=== PATIENT | female | born 1955 | race Caucasian/White ===

== ENCOUNTER → 2020-01-29 10:54 | Outpatient (BNVA) | payer MEDICARE, OTHER, SELFPAY | PROVIDERS: PCP Family Medicine; Referring Provider Family Medicine; Visit Provider Internal Medicine Endocrinology, Diabetes & Metabolism | DX: E03.8 Other specified hypothyroidism (principal); E06.3 Autoimmune thyroiditis; E04.1 Nontoxic single thyroid nodule; Z79.899 Other long term (current) drug therapy | CPT/HCPCS: 99212 ==

== ENCOUNTER 2021-05-28 13:51 | Outpatient (REF) | payer MEDICARE, OTHER, SELFPAY ==
[2021-05-28 16:32] LABS: Free T4 (Free Thyroxine) 1.43 ng/dL (0.71-1.85); Thyroid Stimulating Hormone 0.41 uIU/mL (0.32-4.0)
== END 2021-05-28 13:52 | disposition home or self-care (01) ==
LOC: HO.LAB 13:51
PROVIDERS: PCP Family Medicine; Visit Provider Nurse Practitioner Gerontology
DX: E03.8 Other specified hypothyroidism (principal); E06.3 Autoimmune thyroiditis; E04.9 Nontoxic goiter, unspecified; K21.9 Gastro-esophageal reflux disease without esophagitis; E78.5 Hyperlipidemia, unspecified; I10 Essential (primary) hypertension; J43.9 Emphysema, unspecified; F17.210 Nicotine dependence, cigarettes, uncomplicated; Z95.2 Presence of prosthetic heart valve; Z79.899 Other long term (current) drug therapy
CPT/HCPCS: 36415; 84439; 84443; 99212

== ENCOUNTER 2023-03-01 10:47 | Emergency (ER) | payer MEDICARE, SELFPAY ==
--- NOTE | ~2023-03-01 | CT_ITS ---
EXAMINATION: CT HEAD WITHOUT CONTRAST CLINICAL INFORMATION: Dizziness COMPARISON: None. TECHNIQUE: Contiguous axial imaging was performed from the skull base to vertex without intravenous administration of contrast. Coronal and sagittal reformatted images are performed at the CT scanner. [This CT examination was performed using dose optimization techniques as appropriate, variously including the following: *Automated exposure control *Adjustment of mA and/or kV according to patient size (this includes techniques or standardized protocols for targeted exams where dose is matched to indication/reason for exam; i.e. extremities or head) *Use of iterative reconstruction technique] DLP: 510 mGy-cm. FINDINGS: There is no evidence of acute intracranial hemorrhage or territorial infarction. No abnormal mass-effect or midline shift is seen. Echevarria to white matter differentiation is well preserved. No extra-axial fluid collections are identified. The ventricles are normal in size. There is no abnormal attenuation within the brain parenchyma. There is no osseous abnormality. Small air-fluid level in the right maxillary sinus. Mastoid air cells and middle ear cavities are normally aerated. CT/CT head/brain wo IV con IMPRESSION: No acute intracranial pathology.
--- NOTE | ~2023-03-01 | XR_ITS ---
EXAMINATION: XR CHEST CLINICAL INFORMATION: Dizziness. Abnormal EKG. COMPARISON: Chest x-ray 02/06/2010 TECHNIQUE: 2 views of the chest were obtained. FINDINGS: Cardiac silhouette is normal in size. Patient is status post valvular replacement. Atrial appendage clip present. The lungs are well aerated. There is no lobar consolidation. No pleural effusion or pneumothorax. Mild degenerative changes of the spine. XR/XR chest 2V IMPRESSION: No acute pulmonary pathology.
--- NOTE | 2023-03-01 10:56 | ECG_ITS ---
Test Reason : abn ekg Blood Pressure : / mmHG Vent. Rate : 054 BPM Atrial Rate : 054 BPM P-R Int : 162 ms QRS Dur : 076 ms QT Int : 464 ms P-R-T Axes : 000 025 -01 degrees QTc Int : 440 ms Sinus bradycardia Nonspecific ST and T wave abnormality Borderline ECG When compared with ECG of 15-SEP-2003 07:34, T wave inversion now evident in Inferior leads T wave inversion now evident in Anterior leads Referred By: Generic ED Physician Electronically Signed By:LALO COOPER
--- NOTE | 2023-03-01 11:09 | ED.GENADULT ---
HPI - General Adult General Chief complaint: Dizziness Stated complaint: abnormal ekg Time Seen by Provider: 03/01/23 20:59 Source: patient Mode of arrival: EMS Limitations: no limitations History of Present Illness HPI narrative: 67 yo female with PMH of GERD, HLD, shanita's, HTN, COPD, AVR, here with c/o palpitations and dizziness that is worse at night without dyspnea and CP. Not made worse with exertion. No travel but has had URI symptoms. She gets dizzy when she stands sometimes. She is eating and drinking fine denies GIB symptoms. Sent by PCP for abnormal EKG though we do not have priors since 2003. MD complaint: dizziness Onset (ago): week(s) (1) Location: head Radiation: non-radiation Severity: mild Relieving factors: none Exacerbating factors: other (standing up) Associated symptoms: other (cough) Treatments prior to arrival: none Related Data Home Medications Medication Instructions Recorded Confirmed aspirin 81 mg tablet,delayed 81 mg PO DAILY 01/29/20 01/29/20 release cholecalciferol (vitamin D3) 25 25 mcg PO DAILY 01/29/20 05/28/21 mcg (1,000 unit) tablet docusate sodium 100 mg capsule 100 mg PO BID 01/29/20 01/29/20 ipratropium 20 mcg-albuterol 100 inhalation 01/29/20 01/29/20 mcg/actuation mist for inhalation metoprolol tartrate 25 mg tablet 25 mg PO BID 01/29/20 05/28/21 omeprazole 20 mg capsule,delayed 20 mg PO DAILY 01/29/20 05/28/21 release simvastatin 20 mg tablet 20 mg PO BEDTIME 01/29/20 05/28/21 Previous Rx's Medication Instructions Recorded levothyroxine 75 mcg tablet 75 mcg PO ONCE 30 days #34 tabs 02/19/21 doxycycline hyclate 100 mg capsule 100 mg PO BID 7 days #14 caps 03/01/23 Allergies Allergy/AdvReac Type Severity Reaction Status Date / Time Penicillins Allergy Intermediate RASH Verified 03/01/23 11:09 vancomycin [Vancomycin] Allergy Mild RASH Verified 03/01/23 11:09 penicillin V Allergy Unknown Rash Verified 03/01/23 11:09 Review of Systems Review of Systems: Constitutional : No Fever, No Chills, No Fatigue ENT/Mouth : No sore throat, No Rhinorrhea Eyes: No Eye Pain, No Swelling, No Redness Cardiovascular : No Chest Pain, No SOB, No Dyspnea on Exertion, pos palpitations Respiratory : No Cough, No Sputum Gastrointestinal : No Nausea, No Vomiting, No Diarrhea, No abdominal Pain Genitourinary : No Dysuria, No Urinary Frequency, No Hematuria, Musculoskeletal : No joint pain, No Myalgias, No Joint Swelling Skin : No Skin Lesions, No rash Neuro : No Weakness, No Numbness, pos Dizziness, no Headache Psych : No Anxiety/Panic, No Depression Heme/Lymph: No Bruising, No Bleeding,No Lymphadenopathy Endocrine : No Polyuria, No Polydipsia All other systems reviewed and are negative [facility] Past Medical History Attestation statement: The following information was validated with the patient. Source: old records reviewed Medical History Goiter Thyroid nodule Hypothyroidism Surgical History Hx of heart surgery Family History Family History (Reviewed 05/28/21 @ 14:03 by Donny Dietrich [facility]) Father Unknown family medical history Mother Unknown family medical history Social History Social History Household Members: Spouse Patient Tobacco Use Status: Current everyday Tobacco user Cigarettes Per Day: 7 Advance Directives: No Advance Directives Information Provided: No Physical Exam ED Vital Signs: Vital Signs - 24 hr 03/01/23 11:10 03/01/23 21:22 03/01/23 21:22 Temperature 98.6 F Pulse Rate 56 51 57 Respiratory Rate 16 Blood Pressure 169/57 H 136/61 130/65 Pulse Oximetry 96 Oxygen Delivery Method Room Air 03/01/23 21:27 03/01/23 21:31 Temperature 98.1 F Pulse Rate 61 50 Respiratory Rate 20 Blood Pressure 124/64 138/68 Pulse Oximetry 97 Oxygen Delivery Method Room Air BMI result Body Mass Index 26.7 Appearance: Alert. Oriented X3. No acute distress. Eyes: Pupils equal, round and reactive to light. ENT: Pharynx normal. Neck: Normal inspection. Neck supple. CVS: Normal heart rate and rhythm. Pulses normal. Respiratory: No respiratory distress. Breath sounds normal. Abdomen: Soft and nontender. Skin: Skin warm and dry. Normal skin color. Normal skin turgor. Extremities: No lower extremity edema. No calf ttp Neuro: Oriented X 3. No motor deficit. No sensory deficit. Course Course Course Narrative: RME performed by Neelima Carpenter PA-C. Patient is a 67 year old assigned female at presenting to the emergency department with an abnormal EKG and HTN. Labs, imaging, and swabs ordered. Patient placed back in the waiting room pending room availability and results. Reevaluation(s) Reevaluation #1: EKG at [facility] 2022 shows t wave inversions in aVL and V1-V2 her EKG today is unchanged. she has nonspecific ST T wave changes as well orthostatics reassuring Medical Decision Making Medical Decision Making MDM Narrative: 67 yo female with PMH of GERD, HLD, shanita's, HTN, COPD, AVR, here with c/o palpitations and dizziness x 1 week not made worse with exertion - patient is not toxic appearing has had recent URI has no focal deficits, states she is eating and drinking well has no CP/SOB to suggest ACS or VTE, has no signs of DVT no tachycardia or hypoxia either. Her EKG is from 2003. At this time will obtain troponin serial enzymes, lytes, EKG from prior [facility] visits, ortho VS and reasses. Differential Diagnosis Differential Diagnoses: The differential diagnosis associated with the presentation includes atypical ACS, lyte abnormality, orthostatic hypotension Admission/Observation Consideration of admission/observation: Escalation of care including admission/observation considered 3 flat troponin, EKG unchanged from prior at this time can be DC home stable for DC. CT head possible sinus disease. H/H at baseline, VS reassuring Lab Data [facility] Lab Attestation statement: I reviewed the patient's lab results. 03/01/23 11:40 03/01/23 11:40 Labs: Lab Results 03/01/23 03/01/23 03/01/23 Range/Units 11:40 15:02 21:18 WBC 6.1 (4.8-10.8) X10*3/uL RBC 4.88 (4.20-5.50) X10*6/uL Hgb 12.7 (12.0-16.0) g/dl Hct 39.1 (37.0-47.0) % MCV 80.1 (80.0-98.0) fL MCH 26.0 L (27.0-33.0) pg MCHC 32.5 (31.0-35.0) g/dl RDW 15.7 (11.0-16.0) % Plt Count 225 (160-400) X10*3/uL MPV 11.1 (9.4-12.3) fL Immature Gran % (Auto) 0.3 (0.0-0.4) % Neut % (Auto) 57.0 (45-73) % Lymph % (Auto) 32.0 (20-40) % Foster % (Auto) 9.2 (2-11) % Eos % (Auto) 0.8 (0-4) % Baso % (Auto) 0.7 (0-2) % Lymph # (Auto) 2.0 (1.2-4.9) X10*3/uL Foster # (Auto) 0.6 (0.1-1.2) X10*3/uL Eos # (Auto) 0.1 (0.0-0.4) X10*3/uL Baso # (Auto) 0.0 (0.0-0.2) X10*3/uL Abs Immat Gran (auto) 0.02 (0.00-0.03) X10*3/uL Absolute Neuts (auto) 3.5 (2.0-8.3) x10*3/uL Absolute Nucleated RBC 0.000 (0.0-0.012) X10*3/uL Nucleated RBC % (auto) 0.0 (0.0-0.2) /100WBC PT 11.2 (11.1-13.3) SEC INR 0.9 (0.9-1.1) APTT 29.3 (26.0-36.4) SEC Sodium 141 (135-145) mmol/L Potassium 3.5 (3.3-5.1) mmol/L Chloride 108 (96-108) mmol/L Carbon Dioxide 24 (22-29) mmol/L Anion Gap 13 (12-20) BUN 13 (9-16) mg/dL Creatinine 0.83 (0.5-1.4) mg/dL Estim Creat Clear Calc 48.2 Estimated GFR > 60 Random Glucose 149 H (60-115) mg/dL Calcium 9.5 (8.4-10.2) mg/dL Magnesium 2.0 (1.6-2.6) mg/dL Total Bilirubin 0.2 (0.0-1.0) mg/dL AST 20 (5-31) U/L ALT 6 (0-31) U/L Alkaline Phosphatase 69 (39-117) U/L Troponin I High Sens 9.1 15.6 D 10.2 (<3.5-17.0) ng/L B-Natriuretic Peptide 62 (<100) pg/mL Total Protein 7.7 (6.5-8.0) g/dL Albumin 4.0 (3.5-5.0) g/dL Influenza Type A (PCR) NEGATIVE (Negative) Influenza Type B (PCR) NEGATIVE (Negative) RSV RNA Qual (PCR) NEGATIVE (Negative) SARS-CoV-2 RNA (RT-PCR) NEGATIVE (Negative) Independent Interpretation I performed an independent interpretation of an: EKG, Plain X-Ray (normal ) and CT Scan (max sinus disease) Interpretation: Rate: 54 Rhythm: sinus bradycardia [place]: left Normal P waves. Normal KATY. Normal QRS complex. ST T wave : inverted t waves in III, aVF, V1-V2 qTC: normal prior studies: changed from 2004 The study has been interpreted contemporaneously by me. EKG #2 Rate: 50 Rhythm: sinus bradycardia [place]: left Normal P waves. Normal KATY. Normal QRS complex. ST T wave : inverted t waves aVL, nonspecific ST T wave changed V1-2 qTC: normal prior studies: no acute ischemia The study has been interpreted contemporaneously by me. Radiology Impression Discussion of test interpretation with radiology: I have reviewed the radiologist's reading. Independent Historian Clinical information obtained from an independent historian. History obtained from or confirmed by: Spouse External Record Review External record reviewed: Office record Prescription Management I considered prescription management with: Antibiotic Discharge Plan Discharge Clinical Impression: Dizziness Sinusitis Qualifiers: Sinusitis location: maxillary Chronicity: unspecified Qualified Code(s): J32.0 - Chronic maxillary sinusitis Patient Disposition: Home, Self-Care Instructions: Sinusitis (ED), Dizziness (ED) Additional Instructions: CT scan no acute stroke, three negative tests for the heart, EKG no change from [facility] records, negative covid testing - labs at baseline. Return for worsening symptoms, fevers, vomiting, increased pain, weakness, confusion, headaches or any other concerns. Please call your doctor in the morning. Your EKG is the same as your one from [facility]. On doxycycline, do not take pills immediately before going to bed and swallow pills with plenty of water. Avoid direct sunlight, iron, antacids, and Pepto Bismol. Call your provider if you develop new ringing in your ears, new problems hearing, dizziness, difficulty swallowing, rash, abdominal discomfort, nausea, or diarrhea.?? Take a probiotic while you are on antibiotics and for at least one week after the antibiotics are finished - this can help protect your GI system from diarrhea and other issues. You can get probiotics by drinking kefir, eating yogurt or culturelle or another pill form of probiotic. Do not take it at the same time as you take the antibiotic.?More than 6 to 8 loose stools a day is not normal seek care if this happens Prescriptions: New doxycycline hyclate 100 mg capsule 100 mg PO BID 7 Days Qty: 14 0RF No Action levothyroxine 75 mcg tablet 75 mcg PO ONCE 30 Days Qty: 34 6RF Rx Instructions: One tablet Wednesday through Wednesday 1.5 tablets Sundays please dispense 34 tablets omeprazole 20 mg capsule,delayed release(DR/EC) 20 mg PO DAILY metoprolol tartrate 25 mg tablet 25 mg PO BID simvastatin 20 mg tablet 20 mg PO BEDTIME docusate sodium 100 mg capsule 100 mg PO BID aspirin 81 mg tablet,delayed release (DR/EC) 81 mg PO DAILY cholecalciferol (vitamin D3) 25 mcg (1,000 unit) tablet 25 mcg PO DAILY Combivent Respimat 20-100 mcg/actuation mist inhalation
[2023-03-01 11:10] VITALS: BP 169/57; PULSE 56; RESP 16; TEMP 37; O2SAT 96; BMI 26.7
[2023-03-01 11:45] LABS: MANUAL DIFF FLAG NO
[2023-03-01 11:48] LABS: Basophils Percent Auto 0.7 % (0-2); Eosinophils Absolute Auto 0.1 X10*3/uL (0.0-0.4); Eosinophils Percent Auto 0.8 % (0-4); Hematocrit 39.1 % (37.0-47.0); Hemoglobin 12.7 g/dl (12.0-16.0); Imm Gran Abs Auto 0.02 X10*3/uL (0.00-0.03); Imm Gran Pct Auto 0.3 % (0.0-0.4); Mean Corpuscular HGB Conc 32.5 g/dl (31.0-35.0); Mean Corpuscular Volume 80.1 fL (80.0-98.0); Mean Platelet Volume 11.1 fL (9.4-12.3); Monocytes Absolute Auto 0.6 X10*3/uL (0.1-1.2); Monocytes Percent Auto 9.2 % (2-11); Neutrophils Absolute Auto 3.5 x10*3/uL (2.0-8.3); Platelet Count 225 X10*3/uL (160-400); Red Blood Count 4.88 X10*6/uL (4.20-5.50); Red Cell Distribution Width 15.7 % (11.0-16.0); White Blood Count 6.1 X10*3/uL (4.8-10.8)
[2023-03-01 11:59] LABS: INTERNATIONAL NORM RATIO 0.9 (0.9-1.1); Prothrombin Time 11.2 SEC (11.1-13.3)
[2023-03-01 12:01] LABS: Partial Thromboplastin Time 29.3 SEC (26.0-36.4)
[2023-03-01 12:02] LABS: Alanine Aminotransferase 6 U/L (0-31); Alkaline Phosphatase 69 U/L (39-117); Anion Gap 13 (12-20); Aspartate Amino Transferase 20 U/L (5-31); Bilirubin Total 0.2 mg/dL (0.0-1.0); Blood Urea Nitrogen 13 mg/dL (9-16); Calcium 9.5 mg/dL (8.4-10.2); Carbon Dioxide 24 mmol/L (22-29); Chloride 108 mmol/L (96-108); Creatinine Clr Calc Pharmacy 48.2; Estimated Glomerular Filt Rate > 60; Glucose Random 149 mg/dL (60-115); Potassium 3.5 mmol/L (3.3-5.1); Sodium 141 mmol/L (135-145); Total Protein 7.7 g/dL (6.5-8.0)
[2023-03-01 12:07] LABS: B Type Natriuretic Peptide 62 pg/mL (<100); Troponin-I High Sensitivity 9.1 ng/L (<3.5-17.0)
[2023-03-01 12:24] LABS: Influenza A PCR NEGATIVE (Negative); Influenza B PCR NEGATIVE (Negative); Resp Syncy Virus RNA Qual PCR NEGATIVE (Negative); SARS COV2 PCR INHOUSE NEGATIVE (Negative)
[2023-03-01 15:42] LABS: Troponin-I High Sensitivity 15.6 ng/L (<3.5-17.0)
--- NOTE | 2023-03-01 21:06 | ECG_ITS ---
Test Reason : DIZZINESS Blood Pressure : / mmHG Vent. Rate : 050 BPM Atrial Rate : 050 BPM P-R Int : 180 ms QRS Dur : 090 ms QT Int : 456 ms P-R-T Axes : 028 033 085 degrees QTc Int : 415 ms Sinus bradycardia Nonspecific ST and T wave abnormality Abnormal ECG When compared with ECG of 01-MAR-2023 11:04, T wave inversion no longer evident in Inferior leads Nonspecific T wave abnormality, worse in Lateral leads Referred By: Fannie Lisa Electronically Signed By:LALO COOPER
[2023-03-01 21:22] VITALS: BP 130/65; BP 136/61; PULSE 51; PULSE 57
[2023-03-01 21:27] VITALS: BP 124/64; PULSE 61
[2023-03-01 21:31] VITALS: BP 138/68; PULSE 50; RESP 20; TEMP 36.7; O2SAT 97
[2023-03-01 21:47] LABS: Troponin-I High Sensitivity 10.2 ng/L (<3.5-17.0)
[2023-03-01 23:42] VITALS: BP 138/59; PULSE 58; RESP 16; TEMP 36.6; O2SAT 98
--- NOTE | 2023-03-01 23:45 | PC.NURSE ---
this rn assumed care of pt. pt reporting congestion of her nose. pt denies dizziness at time of discharge, ambulates with steady gait. pt normal sinus on tele 52-56.
== END 2023-03-01 23:47 | disposition home or self-care (01) ==
PROVIDERS: Physician Assistant Medical; Emergency Provider Emergency Medicine; PCP Family Medicine
DX: R42 Dizziness and giddiness (principal); J32.0 Chronic maxillary sinusitis; R05.9 Cough, unspecified; R06.02 Shortness of breath; R00.1 Bradycardia, unspecified; F17.210 Nicotine dependence, cigarettes, uncomplicated; Z79.899 Other long term (current) drug therapy; Z71.6 Tobacco abuse counseling
CPT/HCPCS: 0241U; 36415; 70450; 71046; 80053; 83735; 83880; 84484; 85025; 85610; 85730; 93005; 99284

== ENCOUNTER → 2023-03-01 10:56 | Outpatient (BNV) | payer MEDICARE, SELFPAY | PROVIDERS: PCP Family Medicine; Visit Provider Internal Medicine | DX: R00.1 Bradycardia, unspecified (principal); R94.31 Abnormal electrocardiogram [ECG] [EKG] | CPT/HCPCS: 93010 ==

== ENCOUNTER 2023-03-15 09:49 | Outpatient (REF) | payer MEDICARE, OTHER, SELFPAY ==
[2023-03-15 11:51] LABS: Estimated Average Glucose 131 mg/dL; Hemoglobin A1c % 6.2 % (<6.0)
[2023-03-15 12:26] LABS: Free T4 (Free Thyroxine) 1.46 ng/dL (0.71-1.85); Thyroid Stimulating Hormone 1.87 uIU/mL (0.32-4.0)
== END 2023-03-15 09:50 | disposition home or self-care (01) ==
LOC: HO.HHCL 09:49
PROVIDERS: Visit Provider Family Medicine
DX: E03.8 Other specified hypothyroidism (principal); E06.3 Autoimmune thyroiditis; R73.9 Hyperglycemia, unspecified
CPT/HCPCS: 36415; 83036; 84439; 84443

== ENCOUNTER 2023-06-04 09:12 | Outpatient (AMB) | payer MEDICARE, SELFPAY ==
--- NOTE | 2023-06-04 09:38 | A.OFFVIS_ITS ---
Intake Intake Visit Reasons: LDCT SD Allergies Penicillins Allergy (Intermediate, Verified 03/01/23 11:09) RASH vancomycin [Vancomycin] Allergy (Mild, Verified 03/01/23 11:09) RASH penicillin V Allergy (Unknown, Verified 03/01/23 11:09) Rash HPI HPI Comments History of Present Illness Details Ramesh is a pleasant 68 year old female, current 0.5ppd smoker with a 20 PYH. Patient has been smoking since age 28 for 40 years at 0.5 ppd. Denies marijuana use. Denies exposure to chemicals or substances like asbestos. Denies second hand smoke exposure. Denies known family history of lung cancer. Denies personal history of cancers. Denies chest CT in last year. Denies recent travel outside the [place]. Denies testing positive for COVID. Admits receiving COVID Vaccine. Denies fever, chills, chest pain, new cough, hemoptysis or unintentional weight loss. Lung Cancer Screening Questionnaire reviewed with patient by provider. Shared Decision Making Completed. Discussed in detail with patient, the risk versus benefit of LDCT screening. Patient in agreement of proceeding with scan. PFSH Medical History Goiter Thyroid nodule Hypothyroidism Surgical History Hx of heart surgery Family History Father Unknown family medical history Mother Unknown family medical history Social History (Updated 06/04/23 @ 09:39 by Maricarmen Hernandez NP) Household Members: Spouse Patient Tobacco Use Status: Current everyday Tobacco user Cigarette Packs Per Day: 0.5 Years Smoked: 40 Assessment & Plan Assessment & Plan (1) Nicotine dependence, cigarettes, uncomplicated: Code(s): F17.210 - Nicotine dependence, cigarettes, uncomplicated Plan Shared decision-making visit completed today in office. This patient meets criteria for LDCT for lung cancer screening purposes and is asymptomatic. Offered smoking cessation. Patient has been scheduled for a low dose chest CT for screening purposes at [facility]. We discussed how the results will be obtained depending on CT findings. RADS 1 and RADS 2 will receive a letter with results and will follow up for annual LDCT. Patient informed they will be contacted at later date to schedule upcoming LDCT scan. RADS 3 and RADS 4 will receive a telephone call, or an office visit after reviewing case at our Lung Cancer Conference to determine when the next LDCT will be scheduled or further interventions that may be needed. Discussed importance of screening program and compliance with yearly LDCT scan as scheduled. Risks, benefits, and alternatives were discussed in detail and patient agrees to proceed. Risks discussed include but are not limited to: radiation exposure and possibility of additional intervention for benign disease. Benefits include detection of lung cancer at an early stage. A copy of today's visit and LDCT results will be sent to patient's PCP. Incidental findings on LDCT are PCP's responsibility. If there are incidental findings, our office will ensure that PCP office is aware of these findings. All questions were answered and patient is in agreement of plan. Coding Level of Care Code Lung Cancer Screening G0296 Diagnoses Nicotine dependence, cigarettes, uncomplicated F17.210
== END 2023-06-04 09:37 | disposition home or self-care (01) ==
PROVIDERS: PCP Family Medicine; Visit Provider Nurse Practitioner Family
DX: F17.210 Nicotine dependence, cigarettes, uncomplicated (principal)
CPT/HCPCS: G0296

== ENCOUNTER 2023-06-04 09:38 | Outpatient (REF) | payer MEDICARE, OTHER, SELFPAY ==
--- NOTE | ~2023-06-04 | CT_ITS ---
EXAMINATION: CT CHEST SCREENING CLINICAL INFORMATION: Nicotine dependence. Current smoker at 1 pack per day with 44 pack-year history. COMPARISON: CT chest 08/11/2010. TECHNIQUE: Multidetector volumetric CT imaging of the chest is performed without contrast using low-dose technique. Additional 2D coronal and sagittal reformatted images and axial 3D maximum intensity projection (MIP) images are generated on the CT workstation. This CT examination was performed using dose optimization techniques as appropriate, variously including the following: *Automated exposure control *Adjustment of mA and/or kV according to patient size (this includes techniques or standardized protocols for targeted exams where dose is matched to indication/reason for exam; i.e. extremities or head) *Use of iterative reconstruction technique DLP: 35 mGy-cm FINDINGS: LUNGS: Mild emphysematous changes are present. There is a 3 mm left lower lobe pulmonary nodule (5:200 unchanged from 08/11/2010 102:44) along with a 2 mm right middle lobe nodule (5:242 unchanged from 08/11/2010 102:48). A calcified granuloma is present at the right lung base (5:280). The lungs are otherwise clear with no evidence of inflammation or concerning nodules. MEDIASTINUM: An aortic valve prosthesis is present. Heart size is upper limits of normal. CORONARY ARTERY CALCIFICATION: Moderate. PLEURA: There is no pleural effusion. No pleural mass or thickening. AXILLA: No lymphadenopathy. UPPER ABDOMEN: Unremarkable. OSSEOUS STRUCTURES: Unremarkable. CT/CT lung screening IMPRESSION: Unchanged small pulmonary nodules. ASSESSMENT: Lung-RADS category 2: Benign RECOMMENDATION: Routine annual low-dose CT screening in 12 months.
== END 2023-06-04 09:39 | disposition home or self-care (01) ==
LOC: HO.CT 09:38
PROVIDERS: Visit Provider Nurse Practitioner Family
DX: Z12.2 Encounter for screening for malignant neoplasm of respiratory organs (principal); F17.210 Nicotine dependence, cigarettes, uncomplicated
CPT/HCPCS: 71271; G0296